=== PATIENT | female | born 1955 | race Hispanic/Latino ===

== ENCOUNTER 2021-11-28 10:08 | Outpatient (CLI) | payer BC ==
[2021-11-28] MEDS ORDERED: LIDOCAINE (4%) 40 MG/ML TOPICAL SOLN 50 ML BOTTLE TP ONE (10:27)
[2021-11-28] MEDS ORDERED: SODIUM HYPOCHLORITE, DAKIN'S FULL STRENGTH (0.5%) 473 ML TOPICAL SOLN TP ONE (12:24)
== END 2021-11-28 10:09 | disposition home or self-care (01) ==
LOC: WOUND 10:08
PROVIDERS: ATTEND Surgery
DX: T81.89XA Other complications of procedures, not elsewhere classified, initial encounter (principal); S81.812A Laceration without foreign body, left lower leg, initial encounter; L97.222 Non-pressure chronic ulcer of left calf with fat layer exposed; E03.9 Hypothyroidism, unspecified; Z90.710 Acquired absence of both cervix and uterus; Y83.8 Other surgical procedures as the cause of abnormal reaction of the patient, or of later complication, without mention of misadventure at the time of the procedure; W19.XXXA Unspecified fall, initial encounter; Y93.89 Activity, other specified; Y92.238 Other place in hospital as the place of occurrence of the external cause; Y99.8 Other external cause status
CPT/HCPCS: 11042; 11045; G0463; 99203

== ENCOUNTER 2021-12-05 10:15 | Outpatient (CLI) | payer BC | END 2021-12-05 10:16 | disposition home or self-care (01) | LOC: WOUND 10:15 | PROVIDERS: ATTEND Surgery | DX: T81.89XD Other complications of procedures, not elsewhere classified, subsequent encounter (principal); S81.812D Laceration without foreign body, left lower leg, subsequent encounter; L97.222 Non-pressure chronic ulcer of left calf with fat layer exposed; E03.9 Hypothyroidism, unspecified; Z90.710 Acquired absence of both cervix and uterus; Y83.8 Other surgical procedures as the cause of abnormal reaction of the patient, or of later complication, without mention of misadventure at the time of the procedure; W19.XXXD Unspecified fall, subsequent encounter | CPT/HCPCS: 97605 ==

== ENCOUNTER 2021-12-07 09:47 | Outpatient (CLI) | payer BC | END 2021-12-07 09:48 | disposition home or self-care (01) | LOC: WOUND 09:47 | PROVIDERS: ATTEND Surgery | DX: T81.89XD Other complications of procedures, not elsewhere classified, subsequent encounter (principal); S81.812D Laceration without foreign body, left lower leg, subsequent encounter; L97.222 Non-pressure chronic ulcer of left calf with fat layer exposed; E03.9 Hypothyroidism, unspecified; Z79.899 Other long term (current) drug therapy; Z90.710 Acquired absence of both cervix and uterus; W19.XXXD Unspecified fall, subsequent encounter; Y83.8 Other surgical procedures as the cause of abnormal reaction of the patient, or of later complication, without mention of misadventure at the time of the procedure | CPT/HCPCS: 97605 ==

== ENCOUNTER 2021-12-10 02:00 | Outpatient (CLI) | payer BC | END 2021-12-10 02:01 | disposition home or self-care (01) | LOC: WOUND 02:00 | PROVIDERS: ATTEND Surgery | DX: T81.89XD Other complications of procedures, not elsewhere classified, subsequent encounter (principal); S81.812D Laceration without foreign body, left lower leg, subsequent encounter; L97.222 Non-pressure chronic ulcer of left calf with fat layer exposed; E03.9 Hypothyroidism, unspecified; Z79.899 Other long term (current) drug therapy; W19.XXXD Unspecified fall, subsequent encounter; Y83.8 Other surgical procedures as the cause of abnormal reaction of the patient, or of later complication, without mention of misadventure at the time of the procedure | CPT/HCPCS: 97605; G0463; 99213 ==

== ENCOUNTER 2021-12-12 13:59 | Outpatient (CLI) | payer BC ==
[2021-12-12] MEDS ORDERED: LIDOCAINE (4%) 40 MG/ML TOPICAL SOLN 50 ML BOTTLE TP ONE (14:03)
== END 2021-12-12 14:00 | disposition home or self-care (01) ==
LOC: WOUND 13:59
PROVIDERS: ATTEND Surgery
DX: T81.89XD Other complications of procedures, not elsewhere classified, subsequent encounter (principal); S81.812D Laceration without foreign body, left lower leg, subsequent encounter; L97.222 Non-pressure chronic ulcer of left calf with fat layer exposed; E03.9 Hypothyroidism, unspecified; Z79.899 Other long term (current) drug therapy; W19.XXXD Unspecified fall, subsequent encounter; Y83.8 Other surgical procedures as the cause of abnormal reaction of the patient, or of later complication, without mention of misadventure at the time of the procedure
CPT/HCPCS: 97605

== ENCOUNTER 2021-12-14 09:49 | Outpatient (CLI) | payer BC | END 2021-12-14 09:50 | disposition home or self-care (01) | LOC: WOUND 09:49 | PROVIDERS: ATTEND Surgery | DX: T81.89XD Other complications of procedures, not elsewhere classified, subsequent encounter (principal); S81.812D Laceration without foreign body, left lower leg, subsequent encounter; L97.222 Non-pressure chronic ulcer of left calf with fat layer exposed; E03.9 Hypothyroidism, unspecified; Z79.899 Other long term (current) drug therapy; W19.XXXD Unspecified fall, subsequent encounter; Y83.8 Other surgical procedures as the cause of abnormal reaction of the patient, or of later complication, without mention of misadventure at the time of the procedure | CPT/HCPCS: 97605 ==

== ENCOUNTER 2021-12-19 13:13 | Outpatient (CLI) | payer BC ==
[2021-12-19] MEDS ORDERED: LIDOCAINE (4%) 40 MG/ML TOPICAL SOLN 50 ML BOTTLE TP ONE (14:29)
== END 2021-12-19 13:14 | disposition home or self-care (01) ==
LOC: WOUND 13:13
PROVIDERS: ATTEND Surgery
DX: T81.89XD Other complications of procedures, not elsewhere classified, subsequent encounter (principal); S81.812D Laceration without foreign body, left lower leg, subsequent encounter; L97.222 Non-pressure chronic ulcer of left calf with fat layer exposed; E03.9 Hypothyroidism, unspecified; Z79.899 Other long term (current) drug therapy; W19.XXXD Unspecified fall, subsequent encounter; Y83.8 Other surgical procedures as the cause of abnormal reaction of the patient, or of later complication, without mention of misadventure at the time of the procedure
CPT/HCPCS: 97605

== ENCOUNTER 2021-12-21 09:52 | Outpatient (CLI) | payer BC | END 2021-12-21 09:53 | disposition home or self-care (01) | LOC: WOUND 09:52 | PROVIDERS: ATTEND Surgery | DX: T81.89XD Other complications of procedures, not elsewhere classified, subsequent encounter (principal); S81.812D Laceration without foreign body, left lower leg, subsequent encounter; L97.222 Non-pressure chronic ulcer of left calf with fat layer exposed; E03.9 Hypothyroidism, unspecified; Z79.899 Other long term (current) drug therapy; W19.XXXD Unspecified fall, subsequent encounter; Y83.8 Other surgical procedures as the cause of abnormal reaction of the patient, or of later complication, without mention of misadventure at the time of the procedure | CPT/HCPCS: 99213; G0463 ==

== ENCOUNTER 2021-12-26 14:15 | Outpatient (CLI) | payer BC ==
[2021-12-26] MEDS ORDERED: LIDOCAINE (4%) 40 MG/ML TOPICAL SOLN 50 ML BOTTLE TP ONE (14:25)
== END 2021-12-26 14:16 | disposition home or self-care (01) ==
LOC: WOUND 14:15
PROVIDERS: ATTEND Surgery
DX: T81.89XD Other complications of procedures, not elsewhere classified, subsequent encounter (principal); S81.812D Laceration without foreign body, left lower leg, subsequent encounter; L97.222 Non-pressure chronic ulcer of left calf with fat layer exposed; E03.9 Hypothyroidism, unspecified; Z79.899 Other long term (current) drug therapy; W19.XXXD Unspecified fall, subsequent encounter; Y83.8 Other surgical procedures as the cause of abnormal reaction of the patient, or of later complication, without mention of misadventure at the time of the procedure

== ENCOUNTER 2022-01-16 14:21 | Outpatient (CLI) | payer BC ==
[2022-01-16] MEDS ORDERED: LIDOCAINE (4%) 40 MG/ML TOPICAL SOLN 50 ML BOTTLE TP ONE (14:25)
== END 2022-01-16 14:22 | disposition home or self-care (01) ==
LOC: WOUND 14:21
PROVIDERS: ATTEND Surgery
DX: S81.812D Laceration without foreign body, left lower leg, subsequent encounter (principal); L97.222 Non-pressure chronic ulcer of left calf with fat layer exposed; E03.9 Hypothyroidism, unspecified; L84 Corns and callosities; Z90.710 Acquired absence of both cervix and uterus; Z98.890 Other specified postprocedural states; Z79.899 Other long term (current) drug therapy; W19.XXXD Unspecified fall, subsequent encounter

== ENCOUNTER 2022-01-30 13:57 | Outpatient (CLI) | payer BC ==
[2022-01-30] MEDS ORDERED: LIDOCAINE (4%) 40 MG/ML TOPICAL SOLN 50 ML BOTTLE TP ONE (14:24)
== END 2022-01-30 13:58 | disposition home or self-care (01) ==
LOC: WOUND 13:57
PROVIDERS: ATTEND Surgery
DX: S81.812D Laceration without foreign body, left lower leg, subsequent encounter (principal); L97.222 Non-pressure chronic ulcer of left calf with fat layer exposed; E03.9 Hypothyroidism, unspecified; L84 Corns and callosities; Z90.710 Acquired absence of both cervix and uterus; Z98.890 Other specified postprocedural states; Z79.899 Other long term (current) drug therapy; W19.XXXD Unspecified fall, subsequent encounter

== ENCOUNTER 2022-02-13 14:28 | Outpatient (CLI) | payer BC ==
[2022-02-13] MEDS ORDERED: LIDOCAINE (4%) 40 MG/ML TOPICAL SOLN 50 ML BOTTLE TP ONE (14:39)
== END 2022-02-13 14:29 | disposition home or self-care (01) ==
LOC: WOUND 14:28
PROVIDERS: ATTEND Surgery
DX: S81.812D Laceration without foreign body, left lower leg, subsequent encounter (principal); L97.222 Non-pressure chronic ulcer of left calf with fat layer exposed; E03.9 Hypothyroidism, unspecified; Z90.710 Acquired absence of both cervix and uterus; Z98.890 Other specified postprocedural states; Z79.899 Other long term (current) drug therapy; W19.XXXD Unspecified fall, subsequent encounter

== ENCOUNTER 2022-02-27 14:37 | Outpatient (CLI) | payer BC ==
[2022-02-27] MEDS ORDERED: LIDOCAINE (4%) 40 MG/ML TOPICAL SOLN 50 ML BOTTLE TP ONE (14:47)
== END 2022-02-27 14:38 | disposition home or self-care (01) ==
LOC: WOUND 14:37
PROVIDERS: ATTEND Surgery
DX: S81.812D Laceration without foreign body, left lower leg, subsequent encounter (principal); L97.222 Non-pressure chronic ulcer of left calf with fat layer exposed; E03.9 Hypothyroidism, unspecified; Z90.710 Acquired absence of both cervix and uterus; Z98.890 Other specified postprocedural states; Z79.899 Other long term (current) drug therapy; W19.XXXD Unspecified fall, subsequent encounter

== ENCOUNTER 2022-03-13 13:25 | Outpatient (CLI) | payer BC | END 2022-03-13 13:26 | disposition home or self-care (01) | LOC: WOUND 13:25 | PROVIDERS: ATTEND Surgery | DX: S81.812D Laceration without foreign body, left lower leg, subsequent encounter (principal); L97.222 Non-pressure chronic ulcer of left calf with fat layer exposed; E03.9 Hypothyroidism, unspecified; Z90.710 Acquired absence of both cervix and uterus; Z98.890 Other specified postprocedural states; Z79.899 Other long term (current) drug therapy; W19.XXXD Unspecified fall, subsequent encounter | CPT/HCPCS: 99212; 99213; G0463 ==